=== PATIENT | female | born 1980 | race Caucasian/White ===

== ENCOUNTER 2017-02-08 09:22 | Day surgery (SDC) | payer OTHER, MEDICAID ==
[~2017-02-08] VITALS: Ht 139.7 cm; Wt 59.4 kg
--- NOTE | 2017-02-08 07:55 | HP ---
PATIENT: CANDY WATERMAN MEDICAL RECORD: [id number] ACCOUNT: [id number] LOCATION:[facility] : 81 ADMISSION DATE: 02/08/17 HISTORY AND PHYSICAL EXAMINATION HISTORY OF PRESENT ILLNESS: Candy is a 37-year-old female with Down syndrome. She has a progressively enlarging ulcerative lesion on the left tongue, is unable to be biopsied in the office. She is being admitted for direct laryngoscopy exam under anesthesia and biopsy of the tongue. PAST SURGICAL HISTORY: Includes Down syndrome and hypothyroidism. CURRENT MEDICATIONS: Levothyroxine, nystatin, dexamethasone, Depo-Provera. ALLERGIES: No known drug allergies. PHYSICAL EXAMINATION: GENERAL: She is a cooperative and conversant. She is alert and oriented. FACE: Normal and symmetric with typical down changes. EYES: Normal. EARS: Normal. NOSE: Normal. ORAL CAVITY AND OROPHARYNX: She has a large ulcerative lesion involving almost all left lateral tongue, it is very painful to touch. The rest of the pharynx is unremarkable, but she has very large tonsils. NECK: No masses, no adenopathy. CHEST: Clear. CARDIOVASCULAR: Regular rate and rhythm, no murmur. EXTREMITIES: Normal. IMPRESSION: Tongue lesion. PLAN: Direct laryngoscopy and biopsy of the tongue. TRANSINT:[id number] Voice Confirmation ID: [id number] DOCUMENT ID: [id number] DIONTE WEISS MD at 0755 CC: [id number] DICTATION DATE: 02/02/17 0832 MAIL HANDLER EQUIPMENT OPERATOR: 02/02/17 0918 [id number] [place] [address]
[~2017-02-08 09:22] MED LIST: DEPO-PROVER150 MG/ML IM; SYNTHROID75 MCG PO
[2017-02-08 10:55] LABS: HEMATOCRIT 44.8 % (36.0-48.0); HEMOGLOBIN 15.6 g/dL (12-16); MCH 33.3 pg (26.0-34.0); MCHC 34.8 g/dL (31.0-37.0); MCV 95.7 fL (80.0-100.0); MEAN PLATELET VOLUME 9.4 fL (7.4-10.4); RBC 4.68 10x6/uL (4.00-5.40); RDW 13.7 % (11.5-14.5)
[2017-02-08 11:33] VITALS: BP 126/76; Ht 139.7 cm; Wt 59.4 kg
[2017-02-08 11:39] LABS: HCG URINE NEGATIVE (NEGATIVE)
--- NOTE | 2017-02-08 11:40 | NUR ---
PT ATTEMPTED TO SWOLLOW THE PREOP PILLS AND WAS ONLY ABLE TO TAKE THE ROBINUL TABLET THE OTHERS RETURNED TO PXYSIS.
[2017-02-08 14:43] LABS: BASOPHILS 0.3 % (0.0-2.0); EOSINOPHILS 1.9 % (0-7); HEMATOCRIT 38.9 % (36.0-48.0); HEMOGLOBIN 13.3 g/dL (12-16); IMMATURE GRANULOCYTES 0.2 % (0-5); LYMPHOCYTES 49.8 % (15-50); MCH 32.9 pg (26.0-34.0); MCHC 34.2 g/dL (31.0-37.0); MCV 96.3 fL (80.0-100.0); MEAN PLATELET VOLUME 9.6 fL (7.4-10.4); MONOCYTES 9.4 % (2-11); NEUTROPHILS 38.4 % (40-80); PLATELET COUNT 189 10x3/uL (130-400); RBC 4.04 10x6/uL (4.00-5.40); RDW 13.6 % (11.5-14.5); WBC 6.2 10x3/uL (4.8-10.8)
--- NOTE | 2017-02-08 16:56 | NUR ---
1615--IV DC'D, PT UP TO DRESS WITH ASSISTANCE FROM MOTHER. CYNDY KHAN [id number]--DISCHARGE INSTRUCTIONS GIVEN, PT'S MOTHER VERBALIZES UNDERSTANDING. PT OFF UNIT VIA WC WITH FAMILY. CYNDY KHAN
[2017-02-09 06:13] LABS: RAPID PLASMA REAGIN Non Reactive (Non Reactive)
[2017-02-09 11:17] LABS: ANA REFLEX - DIRECT Negative (Negative)
[2017-02-09 15:24] LABS: FUNGUS STAIN Final report (())
[2017-02-09 18:09] LABS: AFB SPECIMEN PROCESSING Tissue Grinding (())
[2017-02-11 17:11] LABS: ANCA - ANTIMYELOPEROXIDASE <9.0 U/mL (0.0-9.0); ANCA - ANTIPROTEINASE 3 <3.5 U/mL (0.0-3.5); ANCA - ATYPICAL <1:20 titer (Neg:<1:20); ANCA - CYTOPLASMIC <1:20 titer (Neg:<1:20); ANCA - PERINUCLEAR <1:20 titer (Neg:<1:20)
[2017-02-15 12:12] LABS: FUNGUS STAIN RESULT 1 None seen (())
--- NOTE | 2017-03-08 13:10 | OP ---
PATIENT NAME: CANDY WATERMAN MEDICAL RECORD: [id number] :82 LOCATION:[facility] ADMISSION DATE: SURGEON: SCOTTIE PERALTA MD DATE OF OPERATION: 02/08/2017 PREOPERATIVE DIAGNOSIS: Tongue lesion. POSTOPERATIVE DIAGNOSIS: Tongue lesion. PROCEDURE: Direct laryngoscopy and biopsy of the tongue. SURGEON: Scottie Peralta MD. ANESTHESIA: General orotracheal. BLOOD LOSS: 2 cc. SPECIMENS: Multiple biopsies of the tongue for pathology for cultures. COMPLICATIONS: None. DISPOSITION: Recovery stable. FINDINGS: On laryngoscopy, no other lesions were found in addition to the left lateral tongue lesion. The hypopharynx, larynx, base of the tongue, floor of mouth, all of the rest mucosa was normal. DESCRIPTION OF PROCEDURE: She is brought to the operating room and placed in supine position, sedated and intubated by anesthesia. The table was turned 90 degrees. A head drape was applied and she was positioned for laryngoscopy. A plastic upper tooth guard was placed. Kleinsasser J. laryngoscope was used as well a headlight was used to examine the oral cavity, base of tongue, vallecula, hypopharynx, supraglottic larynx, cords, postcricoid area and pyriform, no lesions were identified other than the tongue lesion. Once the laryngoscopy was complete, the plastic tooth guard was removed. The tongue was grasped at the tip and pulled out. The floor of the mouth was examined and palpated. Neck was palpated. There was no adenopathy, no other masses. This tongue lesion was granular, ulcerative, fairly hard in the center, certainly a possibility of carcinoma clinically or even infectious or recurrent trauma possible, especially given her history of chewing on her fingers and things like that, but it took multiple biopsies. Unfortunately, at this time, the machine for frozen sections became disabled and frozen sections were not able to be completed. So, I went ahead and took quite a few biopsies for permanent and quite a few biopsies for cultures as well as, had bled draw blood for lab tests included CBC, ____ ANCA and even to check for syphilis as well. Since we did not have frozen section to help with a decision making. Since there was distinct possibility that this was recurrent traumatic lesion, I went ahead and debulked the fungating glanular tissue and smooth everything down to where the lesion could fit inside of her teeth and occlude normally and debrided the lesion down, especially some of the central harder tissue, certainly not to treat malignancy, but just to help this to heal up if this was just an infected traumatic lesion. A silver nitrate were used in some areas that were bleeding and also used some pressure for a few minutes and the bleeding stopped. With the field completely clean and all of the specimens taken, she was awakened, extubated, and transported to recovery. No complications. Counts are correct. OPERATIVE REPORT [id number] CANDY WATERMAN TRANSINT:[id number] Voice Confirmation ID: [id number] DOCUMENT ID: [id number] SCOTTIE PERALTA MD at 1310 CC: [id number] DICTATION DATE: 02/08/17 1458 CONCRETE BUCKET LOADER: 02/08/17 2254 [facility] 02/08/17 [id number] [place] [address]
[2017-03-09 07:23] LABS: FUNGUS MYCOLOGY CULTURE Final report (())
== END 2017-02-08 16:50 | disposition home or self-care (01) ==
LOC: D.OPS 09:22
PROVIDERS: Anesthesiology; Otolaryngology
DX: K14.9 Disease of tongue, unspecified (principal); C02.1 Malignant neoplasm of border of tongue; Q90.9 Down syndrome, unspecified; E03.9 Hypothyroidism, unspecified; Z79.899 Other long term (current) drug therapy